=== PATIENT | female | born 1955 | race Caucasian/White ===

== ENCOUNTER 2020-06-26 06:31 | Day surgery (SDC) | payer OTHER ==
[2020-06-23 14:22] LABS: Absolute Lymphocytes (CBC) 1.6 K/uL (0.7-4.9); Basophils % 0.8 % (0-1.3); Hematocrit 29.3 % (36.0-45.0); Lymphocytes % 12.3 % (15.3-44.8); RBC Red Blood Cell Count 4.02 M/uL (3.86-4.86)
[2020-06-23 14:47] LABS: BUN Blood Urea Nitrogen 9 mg/dL (7-18); Bicarbonate 27 mmol/L (21-32); Glucose Level 102 mg/dL (74-106); Potassium 3.9 mmol/L (3.5-5.1); Sodium Level 142 mmol/L (136-145)
[2020-06-23 14:59] LABS: Blood Morphology Comment NOTED (NOT SEEN); Hypochromasia 2+; Platelet Estimate ADEQ; White Blood Cell Scan OK (OK)
[2020-06-26] MEDS ORDERED: HEPA 1000U/500MLS 1,000 UNIT/500 ML BAG IV ONE (07:00)
[2020-06-26] MEDS ORDERED: LIDOCAINE 1% 20 ML MDV ONE (07:00)
[2020-06-26] MEDS ORDERED: NA CHLORIDE 0.9% 500 ML ONE (07:15)
[2020-06-26] MEDS ORDERED: ATROPINE SULF 1 MG/10 ML SYR IV ONE (07:38)
[2020-06-26] MEDS ORDERED: MIDAZOLAM HCL 2 MG/2 ML INJ ONE ×2 (07:38→07:54)
[2020-06-26] MEDS ORDERED: FENTANYL CITR 100 MCG/2 ML ONE (07:38)
[2020-06-26] MEDS ORDERED: NA CHLORIDE 0.9% 0 ML ONE (07:38)
[2020-06-26 10:18] VITALS: BP 140/50; TEMP 97.6; O2SAT 93
--- NOTE | 2020-06-26 10:21 | OP ---
Surgeon: Kuldeep Zee MD Manager E Commerce: Megha Franklin. The patient will be in the hospital for 2 hours of bedrest after the Angio-Seal. She will go home to day and I will see her in the office in the next 2 weeks. The patient was admitted to the laborer laboratory today as an outpatient on 06/26/2020. Reason For Admission: To perform a left heart catheterization with selective coronary arteriogram. Indications: Chest pain, positive stress test and history of coronary artery disease. History Of Present Illness: Ms. Bales is 65, has had a history of CAD. She was taking Imdur and c arvedilol for that. Has a history of paroxysmal atrial fibrillation, for which she takes digoxin and aspirin. She also has COPD. Came into the office with chest pain. Had abnormal stress test in the anteroapical wall. A catheterization was planned. Description Of Procedure: She was brought to the laborer laboratory, prepped and draped in the routine sterile fashion. Given Versed and fentanyl for sedation. Using the Seldinger technique, 6-[place] sheath wa s introduced in the right common femoral artery successfully. Angiography there was normal. Angio-S eal was used to close the case. Padmini catheter, left and right were used to cannulate the left farzad n and right main respectively. She was found to have a normal circumflex that was nondominant. Her left main was normal. Her LAD had 40% stenosis just before the 1st diagonal and septal body mechanic. She had diffuse calcification and plaquing throughout. Her RCA showed a 40% mid RCA stenosis with di ffuse calcifications as well. No focal stenosis bad enough for intervention. There were no complica tions. Blood Loss: 5 cc. Anesthesia: Total conscious sedation was 45 minutes. Postoperative Diagnosis: Moderate coronary artery disease. Plan: Plan is for medical therapy. I will increase her Lipitor to 80 mg daily. I will increase her Imdur to 60 mg daily p.r.n. GARY/CHRIS Voice ID: [id number] Report ID: [id number]
== END 2020-06-26 10:02 | disposition home or self-care (01) ==
LOC: CCL 06:31
DX: I25.10 Atherosclerotic heart disease of native coronary artery without angina pectoris (principal); I11.0 Hypertensive heart disease with heart failure; I50.21 Acute systolic (congestive) heart failure; I48.0 Paroxysmal atrial fibrillation; J44.9 Chronic obstructive pulmonary disease, unspecified; R09.89 Other specified symptoms and signs involving the circulatory and respiratory systems; E78.2 Mixed hyperlipidemia; F34.1 Dysthymic disorder; E03.9 Hypothyroidism, unspecified; E66.9 Obesity, unspecified; Z68.31 Body mass index [BMI] 31.0-31.9, adult; Z98.61 Coronary angioplasty status; F17.210 Nicotine dependence, cigarettes, uncomplicated; Z20.822 Contact with and (suspected) exposure to COVID-19; Z82.49 Family history of ischemic heart disease and other diseases of the circulatory system
CPT/HCPCS: 85025; 80048; 36415; 85730; 93454; U0002; C1893; C1760; J2250 ×2; J3010; J7040; J1644; J0583

== ENCOUNTER 2022-04-22 09:07 | Day surgery (SDC) | payer OTHER ==
--- NOTE | 2022-04-19 15:17 | RAD REPORT ---
EXAM DESCRIPTION: RAD - Chest Pa And Lat (2 Views) - 04/19/2022 3:10 pm CLINICAL HISTORY: pre op Chest pain. COMPARISON: No comparisons TECHNIQUE: PA and lateral views of the chest were obtained. FINDINGS: The lungs are hyperexpanded compatible with COPD. The heart is upper limit of normal in si ze. No fracture or aggressive bony process. IMPRESSION: COPD without acute process identified. The USPSTF recommends annual screening for lung cancer with low-dose CT (LDCT) in adults aged 50 to 8 0 years who have a 20 pack-year smoking history and currently smoke or have quit within the past 15 y ears.
[2022-04-19 16:55] LABS: Absolute Lymphocytes (CBC) 0.9 K/uL (0.7-4.9); Hematocrit 23.3 % (36.0-45.0); Lymphocytes % 12.1 % (15.3-44.8); MCV 76.4 fL (80-100); MPV 8.8 fL (7.6-11.3); RBC Red Blood Cell Count 3.06 M/uL (3.86-4.86)
[2022-04-19 17:01] LABS: Protime INR 0.98
[2022-04-19 17:11] LABS: Potassium 3.9 mmol/L (3.5-5.1)
[2022-04-19 17:29] LABS: SARS-CoV-2 Antigen Rapid Res Negative (Negative)
[2022-04-22] MEDS ORDERED: NA CHLORIDE 0.9% 0 ML ONE (09:09)
[2022-04-22 09:27] VITALS: BP 127/51; O2SAT 98
[2022-04-22 09:27] LABS: Absolute Lymphocytes (CBC) 0.8 K/uL (0.7-4.9); Hematocrit 21.8 % (36.0-45.0); Lymphocytes % 12.6 % (15.3-44.8); MCV 75.8 fL (80-100); MPV 8.2 fL (7.6-11.3); RBC Red Blood Cell Count 2.88 M/uL (3.86-4.86)
--- NOTE | 2022-04-23 15:20 | EKG ---
Test Date: 2022-04-19 Test Time: 14:44:22 Blockman: AMBERLY MEASUREMENT RESULTS: Intervals: Rate: 95 CO: 184 QRSD: 98 QT: 364 QTc: 457 [place]: P: 85 CO: 184 QRS: 52 T: 84 INTERPRETIVE STATEMENTS: Sinus rhythm with occasional premature ventricular complexes Low voltage QRS Cannot rule out Anterior infarct, age undetermined Abnormal ECG Compared to ECG 05/28/2005 17:28:00 Ventricular premature complex(es) now present Low QRS voltage now present Myocardial infarct finding now present Sinus tachycardia no longer present T-wave abnormality no longer present Electronically Signed On 04-23-22 15:17:08 MANAGER REVENUE by Isma Aviles
== END 2022-04-22 10:15 | disposition home or self-care (01) ==
LOC: CCL 09:07
DX: R94.39 Abnormal result of other cardiovascular function study (principal); Z53.09 Procedure and treatment not carried out because of other contraindication; Z20.822 Contact with and (suspected) exposure to COVID-19
CPT/HCPCS: 36415; 71046; 80048; 85025; 85610; 85730; 87811; 93005; J7040

== ENCOUNTER 2022-05-02 11:07 | Day surgery (SDC) | payer OTHER ==
[~2022-05-02 11:07] MED LIST: ATROPINE SULF 1 MG/10 ML SYR IV ONE; FENTANYL CITR 100 MCG/2 ML ONE; HEPA 1000U/500MLS 2,000 UNIT/1,000 ML BAG IV ONE; HEPARIN 10,000 UNIT/10 ML VIAL IV ONE; HEPARIN 5000 UNIT/ML 1 ML VIAL ONE; LIDOCAINE 1% MPF 30 ML VIAL ONE; MIDAZOLAM HCL 2 MG/2 ML INJ ONE; NITROGLYCERIN 100 MCG/ML SYR (for cath lab use only) IV ONE; NITROGLYCERIN/D5W 25 MG/250 ML BTL IV ONE; VERAPAMIL HCL 10 MG/4 ML VIAL IV ONE
[2022-05-02] MEDS ORDERED: NA CHLORIDE 0.9% 500 ML ONE (11:14)
[2022-05-02 11:20] VITALS: TEMP 97
--- NOTE | 2022-05-02 13:41 | OP ---
Date of Procedure: 05/02/2022 Surgeon: BAILEY PALACIOS Procedures Performed: 1.Selective coronary angiogram. 2.Left heart catheterization. 3.Groin angiogram. Access: Right femoral artery 6-[place]ic closed with 6-Green[place]ic Angio-Seal. Indication: Abnormal stress test. Complications: None. Bleeding: Less than 20 mL. Anesthesia: Total sedation time was 30 minutes, used fentanyl and Versed. Description Of Procedure: After risks, benefits, alternatives were explained, the patient agreed to the procedure and signed informed consent. The patient was brought into the cardiac catheterization laboratory, prepped and draped in the usual sterile fashion. Then, I accessed right femoral artery u sing micropuncture kit, ultrasound guidance and fluoroscopy, and placed a 6-[place]ic [place] sheath an d limited groin angiogram showed no significant disease. Then, I took a 6-[place] JL3.5 catheter into the aortic root, engaged the left main and took standard views. Then, I exchanged for a 6-[place] JR 4 catheter into the left main, engaged the RCA, took standard views, and the catheter was pushed over the wire into the LV, measured the LVEDP and pullback did not include any gradients. The catheter a nd wires were removed, sheath was removed, placed a 6-[place] Angio-Seal for closure with good hemosta sis. Findings: 1.Left main; large and normal. 2.LAD; large vessel with mid mild 20% to 30% stenosis and then luminal irregularities. Diagonal bra nches are normal. 3.Left circumflex; large vessel with OM1 branch and proximal 30% stenosis. Otherwise, no significan t disease. 4.RCA. It is a dominant circulation with proximal stent that is widely patent and then mid RCA, the re is a focal 30% stenosis, but it is at the bifurcation, such could be natural look of the artery, o therwise no other disease. 5.Elevated LVEDP between 15 and 19 mmHg. Conclusion: 1.Mild nonobstructive coronary artery disease. 2.Patent proximal RCA stent. 3.Mildly elevated LVEDP. Plan: Medical management. SR/MODL Voice ID: [id number] Report ID: [id number]
[2022-05-02 14:15] VITALS: BP 134/91; O2SAT 97
== END 2022-05-02 14:35 | disposition home or self-care (01) ==
LOC: CCL 11:07
PROVIDERS: ATTEND Internal Medicine
DX: I25.110 Atherosclerotic heart disease of native coronary artery with unstable angina pectoris (principal); I11.0 Hypertensive heart disease with heart failure; I50.21 Acute systolic (congestive) heart failure; E78.2 Mixed hyperlipidemia; J44.1 Chronic obstructive pulmonary disease with (acute) exacerbation; F34.1 Dysthymic disorder; D64.9 Anemia, unspecified; E03.9 Hypothyroidism, unspecified; E66.9 Obesity, unspecified; Z68.29 Body mass index [BMI] 29.0-29.9, adult; Z95.5 Presence of coronary angioplasty implant and graft; Z87.891 Personal history of nicotine dependence; Z82.49 Family history of ischemic heart disease and other diseases of the circulatory system
CPT/HCPCS: 93458; 76937; C1893; Q9966; C1760; G0269; J2001; J1644 ×2; J2250; J3010; J7040; J0461

== ENCOUNTER 2022-10-30 08:21 | Day surgery (SDC) | payer OTHER ==
[2022-10-30] MEDS ORDERED: Ringers Lactate 1,000 ML IV ONE (09:05)
[2022-10-30] MEDS ORDERED: ALBUTEROL 2.5 MG/3 ML NEB SOL ONE (09:27)
[2022-10-30] MEDS ORDERED: LIDOCAINE 1% MPF 5 ML VIAL ONE (10:16)
[2022-10-30] MEDS ORDERED: propofoL 200 MG/20 ML VIAL IV ONE (10:16)
[2022-10-30 11:37] VITALS: O2SAT 93
[2022-10-30 11:38] VITALS: BP 116/53; TEMP 97
== END 2022-10-30 11:05 | disposition home or self-care (01) ==
LOC: OR 08:21
PROVIDERS: ATTEND Internal Medicine Gastroenterology
PROC: 0DB88ZX Excision of Small Intestine, Via Natural or Artificial Opening Endoscopic, Diagnostic (ICD-10-PCS; 2022-10-30)
PROC: 0DB68ZX Excision of Stomach, Via Natural or Artificial Opening Endoscopic, Diagnostic (ICD-10-PCS; principal; 2022-10-30 10:15)
DX: K92.1 Melena (principal); D50.9 Iron deficiency anemia, unspecified; K59.00 Constipation, unspecified; K29.50 Unspecified chronic gastritis without bleeding; K21.00 Gastro-esophageal reflux disease with esophagitis, without bleeding
CPT/HCPCS: 88312; 88305; 43239; J2704; J2001; J7613; J7120